=== PATIENT | female | born 1950 | race Caucasian/White ===

== ENCOUNTER → 2016-05-20 | Outpatient (CLI) | payer MEDICARE, OTHER ==
[~2016-05-20] MED LIST: ASPI-586 PO; ATOR10TA56 PO; BETA5POW12 PO; FEXO-95 PO; MELO-255 PO; NF-FLON16G NS; ONDA4TAB8 PO; POTA20TA7 PO; PRED20TA PO; TRIA1TAB18 PO
[2016-05-20 09:24] LABS: ALBUMIN 3.4 g/dL (3.4-5.0); ANION GAP 12.5 MEQ/L (3-15); TOTAL PROTEIN 6.7 g/dL (6.4-8.5)
== END ==
LOC: LAB 08:44
PROVIDERS: ATTEND Family Medicine
DX: R74.8 Abnormal levels of other serum enzymes (principal); M85.80 Other specified disorders of bone density and structure, unspecified site; E55.9 Vitamin D deficiency, unspecified
CPT/HCPCS: 36415; 80053; 82306; 82977

== ENCOUNTER → 2016-07-15 | Outpatient (CLI) | payer MEDICARE, OTHER ==
[2016-07-15 12:00] LABS: ALBUMIN 3.3 g/dL (3.4-5.0); TOTAL PROTEIN 6.3 g/dL (6.4-8.5)
[2016-07-19 13:35] LABS: LAMBDA LIGHT CHAINS SERUM 1.32 mg/dL (())
== END ==
LOC: LAB 11:09
PROVIDERS: ATTEND Family Medicine
DX: E55.9 Vitamin D deficiency, unspecified (principal); M85.80 Other specified disorders of bone density and structure, unspecified site; E78.4 Other hyperlipidemia
CPT/HCPCS: 36415; 80076; 82306; 82784; 83883; 83970; 84155; 86334

== ENCOUNTER → 2016-07-23 | Outpatient (CLI) | payer MEDICARE, OTHER ==
[2016-07-23 19:48] LABS: PROTEIN UR MG/DL 11 mg/dL (1-14)
== END ==
LOC: RAD 07:52
PROVIDERS: ATTEND Family Medicine
DX: R74.8 Abnormal levels of other serum enzymes (principal)
CPT/HCPCS: 77075; 84166; 86335